=== PATIENT | male | born 1965 | race Caucasian/White ===

== ENCOUNTER 2020-07-06 11:23 | Outpatient (CLI) | payer BC, SELFPAY ==
--- NOTE | ~2020-07-06 | XR_ITS ---
EXAMINATION: XR knee RT 3V EXAM DATE: 07/06/2020 11:44 INDICATION: No known recent injury provided at this time. Pain of the right knee. TECHNIQUE: Three projections of the right knee. There is no prior study for comparison. FINDINGS: No evidence osteochondral defect or joint body in the right knee joint. There are no acute fractures or dislocations identified. There is no subcutaneous gas. There is sma ll joint effusion. There are no radiopaque foreign bodies. IMPRESSION: Small right knee joint effusion. Reviewed, dictated and finalized at location B.
== END 2020-07-06 11:24 | disposition home or self-care (01) ==
PROVIDERS: PCP Internal Medicine; Visit Provider Internal Medicine
DX: M25.461 Effusion, right knee (principal)
CPT/HCPCS: 73562

== ENCOUNTER 2021-01-12 13:45 | Outpatient (CLI) | payer BC, SELFPAY ==
--- NOTE | 2021-01-12 | ECG_ITS ---
Measurements Intervals [place] Rate: 93 P: 66 AR: 186 QRS: 42 QRSD: 96 T: 59 QT: 335 QTc: 418 Interpretive Statements SINUS RHYTHM NORMAL ECG Electronically Signed On 01-12-2021 14:33:53 [employer] by Jaime Arshad D.O.
[2021-01-12 14:17] LABS: Anion Gap 12 mmol/L (8-16); Blood Urea Nitrogen 21 mg/dL (9-20); Calcium 9.4 mg/dL (8.4-10.2); Carbon Dioxide 22 mmol/L (22-30); Chloride 102 mmol/L (98-107); Estimated Glomerular Filt Rate > 60; Glucose 125 mg/dL (65-110); Potassium 4.1 mmol/L (3.4-5.0); Sodium 136 mmol/L (137-145)
== END 2021-01-12 13:46 | disposition home or self-care (01) ==
LOC: ANHLAB 13:48
PROVIDERS: PCP Internal Medicine; Visit Provider Orthopaedic Surgery
DX: Z01.818 Encounter for other preprocedural examination (principal)
CPT/HCPCS: 36415; 80048; 93005

== ENCOUNTER 2022-06-20 14:36 | Outpatient (CLI) | payer BC, SELFPAY ==
--- NOTE | ~2022-06-20 | CT_ITS ---
EXAMINATION: CT lung screening DATE: 06/20/2022 15:01 INDICATION: Personal history of tobacco dependence. Current smoker. TECHNIQUE: Computed tomography (CT) of the chest was performed without intravenous contrast. The dose -length product was 382.69 mGy-cm. Automated exposure control and iterative reconstruction technique were employed. COMPARISON: None FINDINGS: Heart size normal. No thoracic lymphadenopathy. No significant pleural or pericardial effus ion. There is a 12 mm exophytic left renal lesion, consistent with a cyst. There are small upper lobe nodules in the right upper lobe measuring 2 mm or less, most likely benign postinfectious/inflammato ry nodules. No pneumothorax. Mild emphysema. No endobronchial lesions. There are a few scattered 1 mm upper lobe nodules on the left. IMPRESSION: 1. Lung-RADS category 2: Benign appearance or behavior. Continue annual screening with noncontrast lo w-dose chest CT in 12 months. Reviewed, dictated and finalized at location A. IMPRESSION: 1. Lung-RADS category 2: Benign appearance or behavior. Continue annual screeni ng with noncontrast low-dose chest CT in 12 months.
== END 2022-06-20 14:37 | disposition home or self-care (01) ==
PROVIDERS: PCP Internal Medicine; Visit Provider Internal Medicine
DX: Z12.2 Encounter for screening for malignant neoplasm of respiratory organs (principal); Z87.891 Personal history of nicotine dependence
CPT/HCPCS: 71271

== ENCOUNTER 2023-03-30 11:57 | Outpatient (CLI) | payer OTHER, SELFPAY ==
[2023-03-30 12:11] LABS: Basophils Absolute Auto 0.1 K/mm3 (0.0-0.1); Basophils Percent Auto 0.5 % (0.2-1.2); Eosinophils Absolute Auto 0.2 K/mm3 (0-0.3); Eosinophils Percent Auto 1.9 % (0-4.4); Hematocrit 47.7 % (42.0-52.0); Hemoglobin 16.3 g/dL (14.0-18.0); Immature Granulocyte Absolute 0.03 K/mm3 (0.00-0.031); Immature Granulocyte Percent A 0.3 % (0-0.5); Lymphocytes Absolute Auto 2.52 K/mm3 (0.9-3.2); Mean Corpuscular HGB Conc 34.2 g/dl (32-36); Mean Corpuscular Hemoglobin 30.7 pg (26-34); Mean Corpuscular Volume 89.8 fl (80-100); Mean Platelet Volume 9.4 fl (7.4-10.4); Monocytes Absolute Auto 0.8 K/mm3 (0.1-0.6); Monocytes Percent Auto 8.6 % (2.6-8.5); Neutrophils Absolute Auto 6.1 K/mm3 (1.3-6.7); Neutrophils Percent Auto 62.7 % (45.5-73.1); Platelet Count Result 268 k/mm3 (150-375); Red Blood Count 5.31 M/mm3 (4.6-6.20); Red Cell Distribution Width 12.2 % (11.5-14.5); White Blood Count 9.7 K/mm3 (4.5-10.0)
[2023-03-30 16:34] LABS: Alanine Aminotransferase 48 U/L (6-50); Albumin Level 4.7 g/dL (3.5-5.1); Alkaline Phosphatase 58 U/L (38-126); Anion Gap 8 mmol/L (8-16); Aspartate Amino Transferase 37 U/L (17-59); Bilirubin,Total 0.5 mg/dL (0.2-1.3); Blood Urea Nitrogen 17 mg/dL (9-20); Calcium 9.5 mg/dL (8.4-10.2); Carbon Dioxide 26 mmol/L (22-30); Chloride 103 mmol/L (98-107); Estimated Glomerular Filt Rate > 60; Glucose 99 mg/dL (65-110); Potassium 4.1 mmol/L (3.4-5.0); Sodium 137 mmol/L (137-145)
[2023-04-02 11:38] LABS: Erythropoietin (EPO) 4.2 mIU/mL (2.6-18.5)
== END 2023-03-30 11:58 | disposition home or self-care (01) ==
LOC: ANHLAB 11:59
PROVIDERS: Nurse Practitioner Family; PCP Internal Medicine; Visit Provider Internal Medicine Hematology & Oncology
DX: D75.1 Secondary polycythemia (principal)
CPT/HCPCS: 36415; 80053; 82668; 85025

== ENCOUNTER 2023-11-10 01:47 | Day surgery (SDC) | payer OTHER, SELFPAY ==
[2023-10-25 08:18] VITALS: BMI 35.3
[2023-11-10 07:24] VITALS: BP 144/78; PULSE 102; RESP 20; TEMP 36.2; O2SAT 96
[2023-11-10] MEDS: LACTATED RINGERS 1,000 ML 150 ML IV CONT (07:30)
--- NOTE | 2023-11-10 08:02 | WPDANESEPPF ---
Anes - Initial Pre Proc Eval Procedure: Operation Date: 11/10/23 08:30 Proposed Procedures p Colonoscopy - John Gibbs MD Date/Time: 11/10/23 08:02 Surgeon: John Gibbs MD Pre Op Diagnosis: Personal history colon polyps Patient Data Age: 58 Gender: M Height: 1.83 m Weight: 118.6 kg Last Vital Signs Temp 97.2 F L 11/10/23 07:24 Pulse 102 H 11/10/23 07:24 Resp 20 11/10/23 07:24 BP 144/78 H 11/10/23 07:24 Pulse Ox 96 11/10/23 07:24 O2 Del Method Room Air 11/10/23 07:24 Allergies Allergy/AdvReac Type Severity Reaction Status Date / Time No Known Allergies Allergy Verified 11/10/23 07:22 Home Medications Medication Instructions Recorded Confirmed Type felodipine 10 mg tablet,extended 10 mg PO DAILY #90 tabs 04/03/23 11/10/23 Rx release 24 hr tadalafil 10 mg tablet (Cialis) 10 mg PO DAILY PRN sexual activity 04/21/23 11/10/23 Rx #10 tabs syringe with needle 3 mL 22 gauge #1,000 ea 06/27/23 10/25/23 Rx x 1 lisinopril 40 mg tablet 40 mg PO DAILY #90 tabs 09/28/23 11/10/23 Rx testosterone cypionate 200 mg/mL 200 mg IM .every 2 weeks #6 mL 10/05/23 11/10/23 Rx intramuscular oil syringe with needle 3 mL 22 gauge #100 ea 10/06/23 10/25/23 Rx x 1 Patient hx anesthesia problems: none Family hx anesthesia problems: none Results Review: All pre-operative results and documents have been reviewed as part of the pre-operative evaluation. [facility] Past Medical History Medical History Elevated LFTs Essential (primary) hypertension Essential hypertension Hyperglycemia Hyperlipidemia Obstructive sleep apnea (adult) (pediatric) Polycythemia, secondary TMJ (temporomandibular joint syndrome) Torn meniscus Surgical History Surgical History H/O lateral meniscus repair of right knee Family History Family History Mother Patient's mother is in good health Sibling Patient's sister is in good health Father Esophageal cancer Social History Social History Smoking packs per day: 1 Smoking cigarettes per day: 20.0 Smoking status: Current every day smoker Tobacco type: cigarettes Second hand tobacco smoke exposure: No Alcohol intake: current Drinks per week: 6 Substance use: never Substance use type: does not use Do You Feel Safe in your Home?: Yes Lack of Transportation: No Lack of Food: Never True Current Housing: I Have Housing Concerned About Future Housing: No Difficulty Paying Gas/Electric Bills: No Difficulty Paying for Meds: No Currently Unemployed: No Education: Trade/Vocational Certificate Difficulty w/ Childcare or Family Care: No Living arrangements: with family Spiritual care concerns: No Anes - Eval Final PreProcedure Day of Procedure 11/10/23 08:02 Patient weight: obese Heart: regular rate and rhythm Lungs: clear to auscultation Airway: Mallampati scale class III Neurological: alert and oriented Last oral intake: >/= 8 hours ASA classification: III Emergent: no Anesthetic plan: proceed Anesthesia type and monitoring: general GIVS and standard monitoring Results Review: All pre-operative results and documents have been reviewed as part of the pre-operative evaluation. Informed Consent: The patient's anesthetic plan and its attendant risks and benefits were discussed with the patient/family/POA. Questions were solicited and answers provided to the satisfaction of the patient/family/POA.
--- NOTE | 2023-11-10 08:35 | PM.HPGS ---
History of Present Illness History of Present Illness Consent: Risks, benefits, and alternatives have been discussed and questions answered. Patient agrees to proceed with procedure. Chief complaint: Personal history colon polyps Narrative: Nahum Colunga is a 58 year old male with colon polyp 5 years ago Review of Systems Review of Systems: All systems reviewed & are unremarkable except as noted in HPI and below PMFSH Past Medical History Medical History (Updated 11/10/23 @ 08:38 by John Gibbs MD) Colon polyp Elevated LFTs Essential (primary) hypertension Essential hypertension Hyperglycemia Hyperlipidemia Obstructive sleep apnea (adult) (pediatric) Polycythemia, secondary TMJ (temporomandibular joint syndrome) Torn meniscus Surgical History Surgical History H/O lateral meniscus repair of right knee Family History Family History Mother Patient's mother is in good health Sibling Patient's sister is in good health Father Esophageal cancer Social History Social History Smoking packs per day: 1 Smoking cigarettes per day: 20.0 Smoking status: Current every day smoker Tobacco type: cigarettes Second hand tobacco smoke exposure: No Alcohol intake: current Drinks per week: 6 Substance use: never Substance use type: does not use Do You Feel Safe in your Home?: Yes Lack of Transportation: No Lack of Food: Never True Current Housing: I Have Housing Concerned About Future Housing: No Difficulty Paying Gas/Electric Bills: No Difficulty Paying for Meds: No Currently Unemployed: No Education: Trade/Vocational Certificate Difficulty w/ Childcare or Family Care: No Living arrangements: with family Spiritual care concerns: No Meds Home Medications and Allergies Home Medications Medication Instructions Recorded Confirmed Type felodipine 10 mg tablet,extended 10 mg PO DAILY #90 tabs 04/03/23 11/10/23 Rx release 24 hr tadalafil 10 mg tablet (Cialis) 10 mg PO DAILY PRN sexual activity 04/21/23 11/10/23 Rx #10 tabs syringe with needle 3 mL 22 gauge #1,000 ea 06/27/23 10/25/23 Rx x 1 lisinopril 40 mg tablet 40 mg PO DAILY #90 tabs 09/28/23 11/10/23 Rx testosterone cypionate 200 mg/mL 200 mg IM .every 2 weeks #6 mL 10/05/23 11/10/23 Rx intramuscular oil syringe with needle 3 mL 22 gauge #100 ea 10/06/23 10/25/23 Rx x 1 Allergies Allergy/AdvReac Type Severity Reaction Status Date / Time No Known Allergies Allergy Verified 11/10/23 07:22 Vital Signs Vital Signs - 24 hr 11/10/23 07:24 Temperature 97.2 F L Pulse Rate 102 H Respiratory Rate 20 Blood Pressure 144/78 H Pulse Oximetry 96 Oxygen Delivery Room Air Exam Const: General: comfortable and no acute distress HENMT: Face/Nose/Sinus: Normal nares present Eyes: General: appearance normal, both eyes and all related structures Neck: Neck: no JVD Resp: Auscultation: clear to auscultation bilaterally Cardio: Rate: regular rate Rhythm: regular rhythm GI: Inspection: non-distended GI Palp: Yes Soft to palpation Skin: General skin exam: normal color Neuro: General: gait normal Speech: normal speech Extrem: General: normal to inspection Psych: Mental Status: mental status grossly normal Assessment and Plan Assessment and plan (1) Colon polyp: Code(s): K63.5 - Polyp of colon Status: Acute Assessment and Plan: colonoscopy
[2023-11-10 08:56] VITALS: BP 121/69; PULSE 94; RESP 22; O2SAT 95
[2023-11-10 09:06] VITALS: BP 125/81; PULSE 91; RESP 20; O2SAT 97
[2023-11-10 09:16] VITALS: BP 139/82; PULSE 89; RESP 20; O2SAT 100
== END 2023-11-10 09:23 | disposition home or self-care (01) ==
PROVIDERS: PCP Internal Medicine; Referring Provider Internal Medicine Gastroenterology; Visit Provider Internal Medicine Gastroenterology
PROC: 0DJD8ZZ Inspection of Lower Intestinal Tract, Via Natural or Artificial Opening Endoscopic (ICD-10-PCS; CPT 45378; principal; 2023-11-10 08:30)
DX: Z12.11 Encounter for screening for malignant neoplasm of colon (principal); K63.5 Polyp of colon; K64.8 Other hemorrhoids; I10 Essential (primary) hypertension; E78.5 Hyperlipidemia, unspecified; G47.33 Obstructive sleep apnea (adult) (pediatric); F17.210 Nicotine dependence, cigarettes, uncomplicated; E66.9 Obesity, unspecified; Z68.35 Body mass index [BMI] 35.0-35.9, adult; Z79.890 Hormone replacement therapy
CPT/HCPCS: 45385; 88305; J2704; J7120

== ENCOUNTER 2023-12-18 15:27 | Emergency (ER) | payer OTHER, SELFPAY ==
[2023-12-18 15:34] VITALS: BP 147/84; PULSE 99; RESP 16; TEMP 36.2; O2SAT 99
--- NOTE | 2023-12-18 15:52 | ED.GENADULT ---
HPI - General Adult General Chief complaint: Skin/Abscess/Foreign Body Stated complaint: leg infection Time Seen by Provider: 12/18/23 15:34 History of Present Illness HPI narrative: 58-year-old female presented to the emergency department for evaluation for a suspected allergic reaction versus infection secondary to a testosterone injection from 8 weeks ago. Patient had multiple testosterone injections and only has 1 site that is causing reaction. Patient states initially started as a pencil size skye but has grown over the last 8 weeks. Related Data Allergies Allergy/AdvReac Type Severity Reaction Status Date / Time No Known Allergies Allergy Verified 12/18/23 15:36 Review of Systems Review of Systems: All systems reviewed & are unremarkable except as noted in HPI and below PMFSH Past Medical History Medical History (Updated 12/18/23 @ 15:56 by Eliecer Dior MD) Colon polyp Elevated LFTs Essential (primary) hypertension Essential hypertension Hyperglycemia Hyperlipidemia Obstructive sleep apnea (adult) (pediatric) Polycythemia, secondary TMJ (temporomandibular joint syndrome) Torn meniscus Surgical History Surgical History H/O lateral meniscus repair of right knee Family History Family History Mother Patient's mother is in good health Sibling Patient's sister is in good health Father Esophageal cancer Social History Social History Smoking packs per day: 1 Smoking cigarettes per day: 20.0 Smoking status: Current every day smoker Tobacco type: cigarettes Second hand tobacco smoke exposure: No Alcohol intake: current Drinks per week: 6 Substance use: never Substance use type: does not use Do You Feel Safe in your Home?: Yes Lack of Transportation: No Lack of Food: Never True Current Housing: I Have Housing Concerned About Future Housing: No Difficulty Paying Gas/Electric Bills: No Difficulty Paying for Meds: No Currently Unemployed: No Education: Trade/Vocational Certificate Difficulty w/ Childcare or Family Care: No Living arrangements: with family Spiritual care concerns: No Exam Narrative: APPEARANCE: Well appearing, no pain, no distress, well-nourished. HEAD: normocephalic, atraumatic. EYES: PERRLA/EOMI, conjunctivae clear. NOSE: Normal no drainage EARS:TMS clear with good light reflex. THROAT: Pharynx clear, no exudate. NECK: Supple. No adenopathy, no masses. RESPIRATORY: Airway patent, respirations nonlabored. Clear to auscultation bilaterally, no rales, rhonchi, wheezing. CARDIOVASCULAR: Regular rate and rhythm without murmurs rubs or gallops. ABDOMINAL: Soft, nontender, nondistended, normal bowel sounds MUSCULOSKELETAL: Moves all extremities. Strength/ROM intact, No edema, No calf tenderness. NEURO: Alert. Cranial nerves II through XII intact. Grossly intact SKIN: 4 cm erythematous area that is thickened skin with no tenderness and no fluctuance Course Vital Signs Vital signs: Vital Signs Temperature 97.2 F L 12/18/23 15:34 Pulse Rate 99 12/18/23 15:34 Respiratory Rate 16 12/18/23 15:34 Blood Pressure 147/84 H 12/18/23 15:34 Pulse Oximetry 99 12/18/23 15:34 Temperature 97.2 F L 12/18/23 15:34 Pulse Rate 99 12/18/23 15:34 Respiratory Rate 16 12/18/23 15:34 Blood Pressure 147/84 H 12/18/23 15:34 Pulse Oximetry 99 12/18/23 15:34 Medical Decision Making [facility] Narrative Medical decision making narrative: 58-year-old male presents to the emergency department for evaluation for cellulitis to left thigh. No fluctuance or suspected abscess. Patient has no tenderness to palpation. Patient will be treated with antibiotics for suspected cellulitis. Patient was comfortable the plan for close follow-up with primary care physician. All q
[2023-12-18] MEDS: CEPHALEXIN 500 MG CAPSULE PO (16:21)
== END 2023-12-18 16:28 | disposition home or self-care (01) ==
PROVIDERS: Emergency Provider Emergency Medicine; PCP Internal Medicine
DX: T80.29XA Infection following other infusion, transfusion and therapeutic injection, initial encounter (principal); L03.116 Cellulitis of left lower limb; I10 Essential (primary) hypertension; E78.5 Hyperlipidemia, unspecified; G47.33 Obstructive sleep apnea (adult) (pediatric); D75.1 Secondary polycythemia; F17.210 Nicotine dependence, cigarettes, uncomplicated; Z79.899 Other long term (current) drug therapy; Z86.0100 Personal history of colon polyps, unspecified; Y84.8 Other medical procedures as the cause of abnormal reaction of the patient, or of later complication, without mention of misadventure at the time of the procedure
CPT/HCPCS: 99283; A9270

== ENCOUNTER 2024-01-26 12:35 | Outpatient (CLI) | payer OTHER, SELFPAY ==
--- NOTE | 2024-01-26 | ECG_ITS ---
Test Date: 2024-01-26 12:57:36 Measurements Intervals [place] Rate: 80 P: 5 AL: 209 QRS: 29 QRSD: 94 T: 30 QT: 363 QTc: 421 Interpretive Statements SINUS RHYTHM BORDERLINE AV CONDUCTION DELAY BORDERLINE ECG No previous ECG available for comparison Electronically Signed On 01-26-2024 13:06:59 [employer]INTER by Jaime Arshad D.O.
== END 2024-01-26 12:36 | disposition home or self-care (01) ==
PROVIDERS: PCP Internal Medicine
DX: Z01.818 Encounter for other preprocedural examination (principal)
CPT/HCPCS: 93005